=== PATIENT | female | born 1945 | race Caucasian/White ===

== ENCOUNTER → 2016-12-15 | Outpatient (CLI) | payer MEDICARE, BC ==
[~2016-12-15] MED LIST: CRESTOR5 MG PO; DIOVAN HCT 320/1 TA1 PO; EXFORGE 10-3201 TAB PO; LASIX PO; METOPROLOL TART25 MG PO; NAPROSYN500 MG PO; NORVASC2.5 MG PO
--- NOTE | ~2016-12-15 | MY11 ---
[facility] A Service of [facility] RADIOLOGY TEXT RESULTS PATIENT: FABBY MARADIAGA LOCATION: [facility] : 49 UNIT #: [id number] AGE: [address]: Chetan Mcdonald MD SEX: F ORDER DR: [id number] [facility] [address] [place], [place] [address] [id number] O MR#: [id number] Acc #: [id number] NAME: FABBY MARADIAGA : 1945 SEX: F STUDY DATE/TIME: 12/15/2016 16:40 UNIT: [facility] ROOM: STUDY DESCRIPTION: MY Mammogram Screening [facility] [place] Attending Physician: Chetan Mcdonald M.D. Ordering Physician: Chetan Mcdonald M.D. Primary Care Physician: Chetan Mcdonald M.D. MEDICAL IMAGING REPORT This report is preliminary unless electronic signature is present EXAM Bilateral digital screening mammogram with CAD device 12/15/2016 HISTORY Routine screening. FINDINGS Digital imaging of each breast was completed utilizing a two-view examination of each breast in craniocaudal and mediolateral-oblique projections. Review and interpretation of digital mammograms include a second review in conjunction with FDA-approved CAD device. There is a normal parenchymal presentation bilaterally consistent with the patient's age. There are no breast masses imaged and no parenchymal asymmetry is visualized. There are no suspicious microcalcifications and I see no focal architectural disturbance. IMPRESSION Negative screening digital mammogram. One-year followup recommended. Patients over the age of 40 are entered into a reminder system with target due date for the next mammogram. A result letter will also be sent to the patient. BIRADS: 1 Negative Dictated by... Kevin Mcmillan M.D. THIS IS AN ELECTRONICALLY VERIFIED REPORT [facility] A Service [facility] RADIOLOGY TEXT RESULTS PATIENT: FABBY MARADIAGA LOCATION: [facility] : 49 UNIT #: [id number] AGE: [address]: Chetan Mcdonald MD SEX: F ORDER DR: Kevin Mcmillan M.D. at 12/16/2016 7:47 AM KATELYNN/stephania TD: 12/15/2016 20:20 JOB #: [id number] MEDICAL IMAGING REPORT Page 1 of 1 COPY
== END | disposition home or self-care (01) ==
LOC: CWCC 15:36
DX: Z12.31 Encounter for screening mammogram for malignant neoplasm of breast (principal)
CPT/HCPCS: G0202